=== PATIENT | female | born 1950 | race Caucasian/White ===

== ENCOUNTER 2016-09-08 08:38 | Outpatient (CLI) | payer OTHER ==
[2016-09-08] MEDS ORDERED: BARIUM SULFATE 135 ML SUSP.RECON (E-Z-HD) PO ONE (09:05)
== END 2016-09-08 19:44 | disposition home or self-care (01) ==
LOC: SRD 08:38
PROVIDERS: ATTEND Internal Medicine
DX: R13.10 Dysphagia, unspecified (principal)
CPT/HCPCS: 74220-TC

== ENCOUNTER 2017-05-09 12:31 | Outpatient (CLI) | payer OTHER | END 2017-05-09 19:59 | disposition home or self-care (01) | LOC: SRD 12:31 | PROVIDERS: ATTEND Internal Medicine | DX: M25.551 Pain in right hip (principal) | CPT/HCPCS: 73502 ==